=== PATIENT | male | born 2000 | race Caucasian/White ===

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

== ENCOUNTER 2018-08-21 15:32 | Emergency (ER) | payer BC ==
[2018-08-21 15:52] VITALS: BP 116/69
--- NOTE | 2018-08-21 16:18 | UC ---
Upper Extremity HPI - HPI Summary HPI Summary: pt was playing flag football this weekend. 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 he injured his right ring finger. he states it is swollen and slightly tender to palpation. - History of Current Complaint Chief Complaint: UCUpperExtremity Stated Complaint: RIGHT RING FINGER INJURY Hx Obtained From: Patient ?: No Onset/Duration: Sudden Onset Severity Initially: Mild Severity Currently: Mild Pain Intensity: 0 Pain Scale Used: Adult Non Verbal Character: Aching Aggravating Factor(s): Movement, Extension Alleviating Factor(s): Rest Associated Signs And Symptoms: Positive: Swelling, Redness, Bruising. Negative : Fever - Allergies/Home Medications Allergies/Adverse Reactions: Allergies Allergy/AdvReac Type Severity Reaction Status Date / Time No Known Allergies Allergy Verified 08/21/18 15:52 PMH/Surg Hx/FS Hx/Imm Hx Previously Healthy: Yes Endocrine History: Other - none Other Endocrine History: none - Surgical History Surgical History: None - Family History Known Family History: Negative: Cardiac Disease, Hypertension, Diabetes - Social History Alcohol Use: Weekly Substance Use Type: None Smoking Status (MU): Former Smoker Have You Smoked in the Last Year: Yes Review of Systems Constitutional: Negative Skin: Negative Eyes: Negative ENT: Negative Respiratory: Negative Cardiovascular: Negative Gastrointestinal: Negative Genitourinary: Other - no hematuria Motor: Other - pain, swelling to right ring finger Neurovascular: Negative Neurological: Negative Psychological: Negative All Other Systems Reviewed And Are Negative: No Physical Exam Triage Information Reviewed: Yes Appearance: Well-Appearing, No Pain Distress, Well-Nourished Vital Signs: Initial Vital Signs Temp 97.8 F 08/21/18 15:46 Pulse 64 08/21/18 15:46 Resp 16 08/21/18 15:46 BP 116/69 08/21/18 15:46 Pulse Ox 98 08/21/18 15:46 Vital Signs Reviewed: Yes Eye Exam: Normal Eyes: Positive: Conjunctiva Clear ENT Exam: Normal ENT: Positive: Normal ENT inspection Dental Exam: Normal Neck exam: Normal Neck: Positive: Supple Respiratory Exam: Normal Respiratory: Positive: Chest non-tender, Lungs clear, Normal breath sounds, No respiratory distress, No accessory muscle use Cardiovascular Exam: Normal Cardiovascular: Positive: RRR, No Murmur, Pulses Normal, Brisk Capillary Refill Abdominal Exam: Normal Abdomen Description: Positive: Nontender, Soft Bowel Sounds: Positive: Present Musculoskeletal Exam: Other - decreased extension at the dip joint to the right ring finger Neurological Exam: Normal Neurological: Positive: Alert Psychological Exam: Normal Skin: Negative: rashes Upper Extremity Course/Dx - Course Course Of Treatment: pt has no frx noted. clinically pt appears to have an extensor tendon injury at the right dip joint. he is right handed. he plays hockey at [employer]. I encouraged him to f/u with pcp and orthopedic surgery. I further encouraged him to not do sports until cleared by ortho. a splint was placed on his right ring finger in a slightly hyperextended position. pt discharge. - Differential Dx/Diagnosis Provider Diagnoses: extensor tendon injury ring finger right at dip joint Discharge - Sign-Out/Discharge Documenting (check all that apply): Patient Departure All imaging exams completed and their final reports reviewed: Yes - Discharge Plan Condition: Stable Disposition: HOME Patient Education Materials: Finger Sprain (ED) Forms: *Physical Education Release Referrals: No Primary Care Phys,NOPCP [Primary Care Provider] - Patrizia Fraga MD [Medical Doctor] - Additional Instructions: Wear the splint as instructed. please follow up with ortho as soon as possible. return if worse or any new symptoms. for the most conservative approach, no sports until cleared by ortho. based on your exam, you have an extensor tendon injury to your ring finger on your right hand. wear the splint as instructed. Take tylenol and motrin for pain. - Billing Disposition and Condition Condition: STABLE Disposition: Home
--- NOTE | 2018-08-21 16:46 | RAD ---
INDICATION: Right hand injury. TECHNIQUE: 4 views of the right hand were obtained. FINDINGS: There is soft tissue swelling present in the fourth finger. There is mild flexion of the fourth distal interphalangeal joint. No fracture is seen. Joint spaces appear maintained. IMPRESSION: SOFT TISSUE SWELLING, NO FRACTURE IS SEEN.
== END 2018-08-21 17:37 | disposition home or self-care (01) ==
LOC: UCCORT 15:32
DX: S66.304A Unspecified injury of extensor muscle, fascia and tendon of right ring finger at wrist and hand level, initial encounter (principal); X58.XXXA Exposure to other specified factors, initial encounter; Y93.65 Activity, lacrosse and field hockey; Y92.328 Other athletic field as the place of occurrence of the external cause; Z87.891 Personal history of nicotine dependence
CPT/HCPCS: 99211; G0463

== ENCOUNTER → 2019-01-03 11:20 | Day surgery (SDC) | payer BC ==
[~2019-01-03 11:20] MED LIST: Buffered Lidocaine 1% SYRIN* 1 ML/SYRINGE INTRADERM ONE; Dexamethasone IV* 4 MG/ML 1 ML (4 MG) IV SLOW PU ONE; Dexamethasone IV* 4 MG/ML 1 ML (4 MG) ONE; DiMENhydriNATE IV* 50 MG/ML VIAL IV PUSH PRN; Famotidine IV* 10 MG/ML 2 ML (20 mg) IV ONE; Famotidine IV* 10 MG/ML 2 ML (20 mg) ONE; HYDROcodone/ACETAMIN 5-325 MG* 1 TAB ONE; HYDROmorphone INJ1* 1 MG/ML SYRINGE IV PRN; Ketorolac INJ* 30 MG/ML 1 ML VIAL ONE; Lactated Ringers 1000 ML Bag* 1,000 ML IV SCH; Midazolam* 1 MG/ML 2 ML VIAL (2 MG) ONE; Naloxone* 0.4 MG/ML 1 ML VIAL IV PRN; Ondansetron INJ* 2 MG/ML VIAL ONE; Ropivacaine* 2 MG/ML 20 ML VIAL (0.2%) ONE; ceFAZolin 2 GM PREMIX in ORs 2 GM/50 ML BAG IVPB ONE; fentaNYL* 50 MCG/ML 2 ML VIAL (100 MCG VIAL) IV PRN; fentaNYL* 50 MCG/ML 2 ML VIAL (100 MCG VIAL) ONE
[2019-01-03 16:44] VITALS: BP 131/84
--- NOTE | 2019-01-03 21:44 | OP ---
DATE OF OPERATION: 01/03/19 [facility] DATE OF : 98 SURGEON: Sang Whalen MD. TELEPHOTO ENGINEER: NICKI Gill. An assistant store manager trainee was needed for the procedure to aid in positioning of the hand and retraction. ANESTHESIOLOGIST: Dr. Merlos. ANESTHESIA: General. PRE-OP DIAGNOSIS: Status post open reduction and internal fixation of the left third metacarpal 5 days ago, concern for malrotation. POST-OP DIAGNOSIS: Status post open reduction and internal fixation of the left third metacarpal 5 days ago, concern for malrotation. OPERATIVE PROCEDURE: 1. Revision left third metacarpal open reduction and internal fixation. 2. Removal of plate and screws, left third metacarpal. 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 He had a fracture that was treated by a different surgeon and he was concerned about the position of the finger after surgery, so he saw his surgeon again and his surgeon contacted me and asked me if I could take a look at him. It did look like there was some malrotation through the fracture as there was some overlapping of the middle on the index finger. The x-rays looked reasonable, however, he was very concerned about the clinical alignment of the finger and it was quite pronounced. I told them that the only way we can make sure is by taking him back to the operating room and ensuring that it is anatomically aligned. The prior surgeon agreed with that plan and so with all parties in agreement, we decided for revision of left third metacarpal open reduction and internal fixation. He understands there is a risk of stiffness, he understands there is a risk that he could have a nonunion, that he could get an infection, that there is a risk to neurovascular structures. He wishes to proceed. ESTIMATED BLOOD LOSS: 2 mL. COMPLICATIONS: None. FINDINGS: See above and below. DESCRIPTION OF PROCEDURE: Kofi was seen in the preoperative holding area and the correct site, side, and procedure were identified. We came back to the operating room where the arm was prepped and draped in the usual fashion. His prior sutures had been removed prior to prepping and draping. A time-out was performed. The arm was exsanguinated with the Esmarch and the tourniquet was inflated to 250 mmHg. I went ahead and extended his prior incision proximal and ulnar, bringing it back over the third metacarpal and distal ulnar as well. I then raised a full- thickness flap off of the extensor tendons taking great care to preserve the traversing sensory nerves. He did have some branches of sensory nerves coming across the wound distally. These were protected throughout the case. The prior interval between the EIP and the EDC to the middle finger was again utilized to gain exposure to the bone. The plate was immediately visible. I went ahead and removed all of the screws and the prior plate and handed this off. I was then able to deliver each of the bone edges and debride them back of all of their interposing soft tissue. Once I had everything completely cleaned and I could very clearly see all the bony edges, I went ahead and reduced the fracture and clamped it in place with a pointed reduction clamp. I then placed 1 lag screw that was counter stuck across the fracture site. This was a 2.0 mm lag screw. This provided excellent compression. I was then able to remove the pointed reduction clamp. I then brought in a Synthes 2.0 mm plate of the variable angle handset. I selected a little Y plate and the placement of the plate was confirmed on the mini C-arm fluoroscopy. I then placed 1 cortical screw through the oblong hole to get good plate to bone apposition. I then placed the remainder of variable angle locking screws in the proximal metaphyseal bone. I confirmed the plate placement proximally prior to securing the plate distally. The alignment looked very good and so I went ahead and placed a reduction clamp over the plate to ensure good plate to bone apposition distally. The plate was then secured with a combination of locking screws and cortical screws distally, took great care to avoid the prior screw holes from his prior plate so as to get good purchase and bite with each of the screws. I made sure the plate was a bit longer than the prior plate had been so as to make sure that I did not create a risk for fracture at the distal end of the plate. Clinically, we had anatomic reduction. I confirmed this on mini C-arm fluoroscopy. There was no step-off on any of the AP, lateral, or oblique views. We copiously irrigated out the wound. I was able to repair the fascial and periosteal layer over the plate, covering up the plate in its entirety. There was one junctura that I had to release distally to gain exposure and so I repaired that with 4-0 Prolene suture. Again, the periosteal layer was also repaired with 4-0 Prolene suture. The skin was closed with 4-0 nylon suture, 0.5% ropivacaine was infiltrated all around the operative area. The wound was dressed with Xeroform, 4x4s, sterile Webril, and a short-arm splint was applied. I stopped just at the MP joint to allow for some motion in the fingers. Clinically, the alignment looked good. Tourniquet was then deflated and he was taken to the recovery room in stable condition. [id number]/CPS #: [id number] MTDD
== END | disposition home or self-care (01) ==
LOC: OR 11:20
PROVIDERS: ATTEND Orthopaedic Surgery Hand Surgery
DX: S62.31 Displaced fracture of base of other metacarpal bone (principal); T84.220A Displacement of internal fixation device of bones of hand and fingers, initial encounter; Y83.1 Surgical operation with implant of artificial internal device as the cause of abnormal reaction of the patient, or of later complication, without mention of misadventure at the time of the procedure; X58.XXXD Exposure to other specified factors, subsequent encounter; Y93.22 Activity, ice hockey; Y92.330 Ice skating rink (indoor) (outdoor) as the place of occurrence of the external cause
CPT/HCPCS: 76000; 88300; C1713; C1776; J0690; J1100; J1885; J2250; J2405; J2795; J3010